=== PATIENT | male | born 1965 | race African-American/Black ===

== ENCOUNTER 2021-06-22 14:10 | Emergency (ER) | payer BC, OTHER ==
[2021-06-22 14:31] VITALS: BMI 29.2
[2021-06-22] MEDS ORDERED: BAMLANIVIMAB 700 MG, ETESEVIMAB 1,400 MG in SODIUM CHLORIDE 100 ML IVPB ONE (14:41)
[2021-06-22] MEDS ORDERED: SODIUM CHLORIDE 1,000 ML IV STA (14:41)
[2021-06-22] MEDS ORDERED: ACETAMINOPHEN 1000 MG/100 ML VIAL IVPB ONE (14:41)
[2021-06-22] MEDS ORDERED: ACETAMINOPHEN INJECTION 100 ML IVPB ONE (15:47)
[2021-06-22 18:00] VITALS: BP 118/60; PULSE 86; TEMP 99.3
== END 2021-06-22 18:02 | disposition home or self-care (01) ==
LOC: JCOVINFU 14:10 → JER 14:10 → JCOVINFU 18:02
PROC: 3E0333Z Introduction of Anti-inflammatory into Peripheral Vein, Percutaneous Approach (ICD-10-PCS; principal; 2021-06-22)
PROC: 3E03329 Introduction of Other Anti-infective into Peripheral Vein, Percutaneous Approach (ICD-10-PCS; 2021-06-22)
PROC: 3E0337Z Introduction of Electrolytic and Water Balance Substance into Peripheral Vein, Percutaneous Approach (ICD-10-PCS; 2021-06-22)
DX: U07.1 COVID-19 (principal)
CPT/HCPCS: 99284-25; J0131; Q0245

== ENCOUNTER 2021-06-26 21:19 | Inpatient (IN) | payer BC ==
[2021-06-26] MEDS ORDERED: DEXAMETHASONE SOD PHOSPHATE 10 MG/1 ML VIAL IVPUSH ONE (21:59)
[2021-06-26] MEDS ORDERED: DEXAMETHASONE SOD PHOSPHATE 10 MG/1 ML VIAL ONE (22:18)
[2021-06-26] MEDS ORDERED: ACETAMINOPHEN 1000 MG/100 ML BAG IVPB ONE (23:15)
[2021-06-26 23:41] LABS: VENOUS O2 SATURATION 49.9 % (70-80); VENOUS PCO2 47.7 mmHg (38-52); VENOUS PH 7.384 (7.310-7.410)
[2021-06-26 23:45] LABS: BASO % 0.3 % (0-2.0); EOS % 0.1 % (0-4.5); HEMATOCRIT 42.3 % (35.4-49); HEMOGLOBIN 14.2 GM/dL (11.7-16.9); LYMPH % 12.1 % (8-40); MCH 29.7 pg (25.7-33.7); MCHC 33.5 g/dl (32.0-35.9); MEAN CELL VOLUME 88.7 fl (80-96); MEAN PLT VOLUME 9.7 fl (7.5-11.1); MONO % 4.9 % (3.8-10.2); NEUT % 82.6 % (42.8-82.8); PLATELET COUNT 242 10^3/uL (134-434); RBC 4.77 M/mm3 (4.00-5.60); WHITE BLOOD COUNT 6.3 K/mm3 (4.0-10.0)
[2021-06-26 23:51] LABS: INR 1.44 (0.83-1.09); PROTHROMBIN TIME (PATIENT) 16.2 SEC (9.7-13.0)
[2021-06-26 23:54] LABS: ACTIVATED PTT 25.3 SECONDS (25.2-36.5)
[2021-06-27 00:01] LABS: CHLORIDE 96 mmol/L (98-107); SODIUM 133 mmol/L (136-145)
[2021-06-27 00:04] LABS: BLOOD UREA NITROGEN 10.9 mg/dL (7-18)
[2021-06-27 00:05] LABS: ALBUMIN 2.6 g/dl (3.4-5.0); ANION GAP 9 MMOL/L (8-16); CO2 28 mmol/L (21-32); GLUCOSE,RANDOM 123 mg/dL (74-106)
[2021-06-27 00:07] LABS: BILIRUBIN,DIRECT 0.2 mg/dL (0.0-0.2); SGPT/ALT 34 U/L (13-61)
[2021-06-27 00:08] LABS: CREATININE 1.1 mg/dL (0.55-1.3); SGOT/AST 41 U/L (15-37)
[2021-06-27 00:09] LABS: LDH 422 U/L (87-246); TOT PROT 7.4 g/dl (6.4-8.2)
[2021-06-27 00:10] LABS: ALK PHOS 85 U/L (45-117)
[2021-06-27 00:59] LABS: BILIRUBIN,TOTAL 0.6 mg/dL (0.2-1); LACTIC ACID 2.4 mmol/L (0.4-2.0)
[2021-06-27] MEDS ORDERED: ACETAMINOPHEN INJECTION 100 ML IVPB ONE (01:12)
[2021-06-27] MEDS ORDERED: SODIUM CHLORIDE 0.9% 500 ML INFUS.BAG IV ONE (01:28)
[2021-06-27] MEDS ORDERED: ALBUTEROL SO4 HFA INHALER IH PRN (02:07)
[2021-06-27] MEDS ORDERED: AZITHROMYCIN IVPB 500 MG/250 ML BAG IVPB ONE ×2 (02:12→02:27)
[2021-06-27] MEDS ORDERED: ACETAMINOPHEN 325 MG TABLET (FP) ONE (02:28)
[2021-06-27 02:31] LABS: EPI CELLS 19 /uL (0-25.1); HYALINE CASTS 2 /uL (0-3.1); PH,URINE 7.5 (5.0-8.0); URINE APPEARANCE CLEAR; URINE BACTERIA 233 /uL (0-1359); URINE BILIRUBIN NEGATIVE (NEGATIVE); URINE COLOR DK YELLOW; URINE GLUCOSE (UA) NEGATIVE (NEGATIVE); URINE KETONE NEGATIVE (NEGATIVE); URINE LEUK ESTERASE NEGATIVE (NEGATIVE); URINE NITRITE NEGATIVE (NEGATIVE); URINE PROTEIN 1+ (NEGATIVE); URINE WBC 6 /uL (0-25.8)
[2021-06-27 04:27] LABS: URINE RBC 26.8 /uL (0-23.9); YEAST NONE SEEN (NEGATIVE)
[2021-06-27] MEDS ORDERED: ASCORBIC ACID 500 MG TABLET (FP) ONE (08:52)
[2021-06-27] MEDS ORDERED: ZINC SULFATE 220 MG CAPSULE (FP) ONE (08:53)
[2021-06-27] MEDS ORDERED: DEXAMETHASONE SOD PHOSPHATE 10 MG/1 ML VIAL ONE (08:53)
[2021-06-27] MEDS ORDERED: APIXABAN 5 MG TABLET ONE (08:53)
[2021-06-27] MEDS ORDERED: FAMOTIDINE 20 MG TABLET ONE (08:53)
[2021-06-27] MEDS: ZINC SULFATE 220 MG CAPSULE (FP) PO SCH (09:14)
[2021-06-27] MEDS: DEXAMETHASONE SOD PHOSPHATE 10 MG/1 ML VIAL IVPUSH SCH (09:14)
[2021-06-27] MEDS: ASCORBIC ACID 500 MG TABLET (FP) PO SCH ×2 (09:14→22:41)
[2021-06-27] MEDS: FAMOTIDINE 20 MG TABLET PO SCH (09:14)
[2021-06-27] MEDS: CHOLECALCIFEROL (VIT D3) 5000 UNITS (125 MCG) CAP PO SCH (09:15)
[2021-06-27 09:42] LABS: LACTIC ACID 2.1 mmol/L (0.4-2.0)
[2021-06-27 09:52] LABS: ALBUMIN 2.5 g/dl (3.4-5.0); BLOOD UREA NITROGEN 12.4 mg/dL (7-18); CALCIUM 8.1 mg/dL (8.5-10.1)
[2021-06-27 09:55] LABS: CREATININE 1.1 mg/dL (0.55-1.3)
[2021-06-27 09:57] LABS: BILIRUBIN,TOTAL 0.7 mg/dL (0.2-1); TOT PROT 6.8 g/dl (6.4-8.2)
[2021-06-27] MEDS ORDERED: APIXABAN 5 MG TABLET PO SCH (10:00)
[2021-06-27 10:36] LABS: BASO % 0.3 % (0-2.0); HEMATOCRIT 38.1 % (35.4-49); HEMOGLOBIN 12.8 GM/dL (11.7-16.9); LYMPH % 11.2 % (8-40); MCH 29.7 pg (25.7-33.7); MCHC 33.7 g/dl (32.0-35.9); MEAN CELL VOLUME 88.3 fl (80-96); MEAN PLT VOLUME 9.2 fl (7.5-11.1); MONO % 4.7 % (3.8-10.2); NEUT % 83.8 % (42.8-82.8); PLATELET COUNT 210 10^3/uL (134-434); RBC 4.32 M/mm3 (4.00-5.60); RDW 13.2 % (11.9-15.9); WHITE BLOOD COUNT 4.6 K/mm3 (4.0-10.0)
[2021-06-27] MEDS ORDERED: PT OWN MED DRAWER 7, Y5N ONE (10:40)
[2021-06-27] MEDS ORDERED: REMDESIVIR 200 MG in SODIUM CHLORIDE 250 ML IVPB ONE (15:30)
[2021-06-28] MEDS: DEXAMETHASONE SOD PHOSPHATE 10 MG/1 ML VIAL IVPUSH SCH (09:49)
[2021-06-28] MEDS: ASCORBIC ACID 500 MG TABLET (FP) PO SCH ×2 (09:50→22:54)
[2021-06-28] MEDS: CHOLECALCIFEROL (VIT D3) 5000 UNITS (125 MCG) CAP PO SCH (09:50)
[2021-06-28] MEDS: FAMOTIDINE 20 MG TABLET PO SCH (09:50)
[2021-06-28] MEDS: ENOXAPARIN NA (PORCINE) 40 MG/0.4 ML DISP.SYRIN SQ SCH (09:50)
[2021-06-28] MEDS: ZINC SULFATE 220 MG CAPSULE (FP) PO SCH (09:50)
[2021-06-28] MEDS: REMDESIVIR 100 MG in SODIUM CHLORIDE 250 ML IVPB SCH (17:00)
[2021-06-29 07:25] LABS: BASO % 0.9 % (0-2.0); EOS % 0.1 % (0-4.5); HEMATOCRIT 38.3 % (35.4-49); HEMOGLOBIN 12.9 GM/dL (11.7-16.9); LYMPH % 13.6 % (8-40); MCH 29.4 pg (25.7-33.7); MCHC 33.7 g/dl (32.0-35.9); MEAN CELL VOLUME 87.3 fl (80-96); MEAN PLT VOLUME 8.5 fl (7.5-11.1); MONO % 4.3 % (3.8-10.2); NEUT % 81.1 % (42.8-82.8); PLATELET COUNT 271 10^3/uL (134-434); RBC 4.39 M/mm3 (4.00-5.60); RDW 12.8 % (11.9-15.9); WHITE BLOOD COUNT 10.1 K/mm3 (4.0-10.0)
[2021-06-29 08:01] LABS: ALBUMIN 2.4 g/dl (3.4-5.0); BLOOD UREA NITROGEN 13.9 mg/dL (7-18); CALCIUM 8.2 mg/dL (8.5-10.1)
[2021-06-29 08:04] LABS: CREATININE 0.9 mg/dL (0.55-1.3)
[2021-06-29 08:05] LABS: BILIRUBIN,TOTAL 0.6 mg/dL (0.2-1); TOT PROT 6.4 g/dl (6.4-8.2)
[2021-06-29] MEDS: ZINC SULFATE 220 MG CAPSULE (FP) PO SCH (11:27)
[2021-06-29] MEDS: DEXAMETHASONE SOD PHOSPHATE 10 MG/1 ML VIAL IVPUSH SCH (11:27)
[2021-06-29] MEDS: ASCORBIC ACID 500 MG TABLET (FP) PO SCH ×2 (11:27→22:44)
[2021-06-29] MEDS: FAMOTIDINE 20 MG TABLET PO SCH (11:27)
[2021-06-29] MEDS: ENOXAPARIN NA (PORCINE) 40 MG/0.4 ML DISP.SYRIN SQ SCH (11:27)
[2021-06-29] MEDS: CHOLECALCIFEROL (VIT D3) 5000 UNITS (125 MCG) CAP PO SCH (11:28)
[2021-06-29] MEDS ORDERED: TOCILIZUMAB (ACTEMRA) 200 MG/10 ML VIAL IVPB ONE (14:45)
[2021-06-29] MEDS: REMDESIVIR 100 MG in SODIUM CHLORIDE 250 ML IVPB SCH (15:48)
[2021-06-29] MEDS ORDERED: TOCILIZUMAB 700 MG in SODIUM CHLORIDE 65 ML IVPB ONE (16:00)
[2021-06-30 08:19] LABS: CALCIUM 8.2 mg/dL (8.5-10.1)
[2021-06-30 08:20] LABS: ALBUMIN 2.2 g/dl (3.4-5.0); BLOOD UREA NITROGEN 13.1 mg/dL (7-18); MAGNESIUM 2.5 mg/dL (1.8-2.4)
[2021-06-30 08:21] LABS: CREATININE 0.8 mg/dL (0.55-1.3)
[2021-06-30 08:22] LABS: BILIRUBIN,TOTAL 0.5 mg/dL (0.2-1)
[2021-06-30 08:24] LABS: TOT PROT 6.4 g/dl (6.4-8.2)
[2021-06-30 08:25] LABS: BASO % 0.3 % (0-2.0); HEMATOCRIT 38.3 % (35.4-49); HEMOGLOBIN 12.8 GM/dL (11.7-16.9); LYMPH % 10.6 % (8-40); MCH 29.2 pg (25.7-33.7); MCHC 33.5 g/dl (32.0-35.9); MEAN CELL VOLUME 87.2 fl (80-96); MEAN PLT VOLUME 8.5 fl (7.5-11.1); MONO % 5.3 % (3.8-10.2); NEUT % 83.8 % (42.8-82.8); PLATELET COUNT 298 10^3/uL (134-434); RBC 4.39 M/mm3 (4.00-5.60); RDW 13.1 % (11.9-15.9); WHITE BLOOD COUNT 9.2 K/mm3 (4.0-10.0)
[2021-06-30] MEDS: ENOXAPARIN NA (PORCINE) 40 MG/0.4 ML DISP.SYRIN SQ SCH (10:07)
[2021-06-30] MEDS: DEXAMETHASONE SOD PHOSPHATE 10 MG/1 ML VIAL IVPUSH SCH (10:07)
[2021-06-30] MEDS: FAMOTIDINE 20 MG TABLET PO SCH (10:08)
[2021-06-30] MEDS: ZINC SULFATE 220 MG CAPSULE (FP) PO SCH (10:08)
[2021-06-30] MEDS: ASCORBIC ACID 500 MG TABLET (FP) PO SCH ×2 (10:08→22:22)
[2021-06-30] MEDS: CHOLECALCIFEROL (VIT D3) 5000 UNITS (125 MCG) CAP PO SCH (12:53)
[2021-06-30] MEDS: REMDESIVIR 100 MG in SODIUM CHLORIDE 250 ML IVPB SCH (15:26)
[2021-07-01 08:39] LABS: BASO % 0.5 % (0-2.0); EOS % 0.1 % (0-4.5); HEMATOCRIT 39.5 % (35.4-49); HEMOGLOBIN 12.9 GM/dL (11.7-16.9); MCH 28.8 pg (25.7-33.7); MCHC 32.8 g/dl (32.0-35.9); MEAN PLT VOLUME 8.8 fl (7.5-11.1); MONO % 4.2 % (3.8-10.2); NEUT % 89.2 % (42.8-82.8); PLATELET COUNT 411 10^3/uL (134-434); RBC 4.49 M/mm3 (4.00-5.60); RDW 12.8 % (11.9-15.9); WHITE BLOOD COUNT 13.8 K/mm3 (4.0-10.0)
[2021-07-01 08:59] LABS: ALBUMIN 2.3 g/dl (3.4-5.0); BLOOD UREA NITROGEN 14.8 mg/dL (7-18); CALCIUM 8.6 mg/dL (8.5-10.1)
[2021-07-01 09:02] LABS: CREATININE 0.9 mg/dL (0.55-1.3)
[2021-07-01 09:03] LABS: BILIRUBIN,TOTAL 1.1 mg/dL (0.2-1); TOT PROT 6.5 g/dl (6.4-8.2)
[2021-07-01] MEDS: ENOXAPARIN NA (PORCINE) 40 MG/0.4 ML DISP.SYRIN SQ SCH (11:03)
[2021-07-01] MEDS: ZINC SULFATE 220 MG CAPSULE (FP) PO SCH (11:04)
[2021-07-01] MEDS: DEXAMETHASONE SOD PHOSPHATE 10 MG/1 ML VIAL IVPUSH SCH (11:04)
[2021-07-01] MEDS: FAMOTIDINE 20 MG TABLET PO SCH (11:04)
[2021-07-01] MEDS: ASCORBIC ACID 500 MG TABLET (FP) PO SCH ×3 (11:04→21:08)
[2021-07-01] MEDS: CHOLECALCIFEROL (VIT D3) 5000 UNITS (125 MCG) CAP PO SCH (11:05)
[2021-07-01] MEDS: REMDESIVIR 100 MG in SODIUM CHLORIDE 250 ML IVPB SCH (16:16)
[2021-07-02 07:01] LABS: HEMATOCRIT 38.6 % (35.4-49); HEMOGLOBIN 12.8 GM/dL (11.7-16.9); MCH 29.2 pg (25.7-33.7); MCHC 33.2 g/dl (32.0-35.9); MEAN PLT VOLUME 8.2 fl (7.5-11.1); PLATELET COUNT 445 10^3/uL (134-434); RBC 4.39 M/mm3 (4.00-5.60); RDW 12.9 % (11.9-15.9); WHITE BLOOD COUNT 13.3 K/mm3 (4.0-10.0)
[2021-07-02 07:24] LABS: ALBUMIN 2.4 g/dl (3.4-5.0); CALCIUM 8.5 mg/dL (8.5-10.1)
[2021-07-02 07:25] LABS: BLOOD UREA NITROGEN 13.1 mg/dL (7-18); CREATININE 0.8 mg/dL (0.55-1.3)
[2021-07-02 07:27] LABS: BILIRUBIN,TOTAL 0.5 mg/dL (0.2-1); TOT PROT 6.4 g/dl (6.4-8.2)
[2021-07-02] MEDS ORDERED: PT OWN MED DRAWER 7, Y5N ONE (07:50)
[2021-07-02 09:01] LABS: ANISOCYTOSIS 1+; MACROCYTOSIS 0; PLATELET ESTIMATE NORMAL
[2021-07-02] MEDS: ENOXAPARIN NA (PORCINE) 40 MG/0.4 ML DISP.SYRIN SQ SCH (09:20)
[2021-07-02] MEDS: ASCORBIC ACID 500 MG TABLET (FP) PO SCH ×2 (09:21→21:03)
[2021-07-02] MEDS: ZINC SULFATE 220 MG CAPSULE (FP) PO SCH (09:21)
[2021-07-02] MEDS: FAMOTIDINE 20 MG TABLET PO SCH (09:21)
[2021-07-02] MEDS: DEXAMETHASONE SOD PHOSPHATE 10 MG/1 ML VIAL IVPUSH SCH (09:21)
[2021-07-02] MEDS: CHOLECALCIFEROL (VIT D3) 5000 UNITS (125 MCG) CAP PO SCH (09:27)
[2021-07-02] MEDS: REMDESIVIR 100 MG in SODIUM CHLORIDE 250 ML IVPB SCH (15:34)
[2021-07-02] MEDS ORDERED: PANTOPRAZOLE 40 MG TABLET PO ONE (23:30)
[2021-07-03] MEDS: DEXAMETHASONE SOD PHOSPHATE 10 MG/1 ML VIAL IVPUSH SCH (11:47)
[2021-07-03] MEDS: ENOXAPARIN NA (PORCINE) 40 MG/0.4 ML DISP.SYRIN SQ SCH ×2 (11:47→21:11)
[2021-07-03] MEDS: FAMOTIDINE 20 MG TABLET PO SCH (11:48)
[2021-07-03] MEDS: ASCORBIC ACID 500 MG TABLET (FP) PO SCH ×2 (11:48→21:11)
[2021-07-03] MEDS: ZINC SULFATE 220 MG CAPSULE (FP) PO SCH (11:48)
[2021-07-03] MEDS: CHOLECALCIFEROL (VIT D3) 5000 UNITS (125 MCG) CAP PO SCH (11:48)
[2021-07-03] MEDS ORDERED: PT OWN MED DRAWER 7, Y5N ONE (15:20)
[2021-07-03] MEDS: REMDESIVIR 100 MG in SODIUM CHLORIDE 250 ML IVPB SCH (15:31)
[2021-07-03] MEDS: PANTOPRAZOLE 40 MG TABLET PO SCH (16:48)
[2021-07-03] MEDS ORDERED: MAG HYDROX/AL HYDROX/SIMETH -MYLANTA- ORAL SUSPENSION PO SCH (18:00)
[2021-07-03] MEDS: MAG HYDROX/AL HYDROX/SIMETH 30 ML UNIT-DOSE CUP PO SCH (23:31)
[2021-07-04] MEDS: MAG HYDROX/AL HYDROX/SIMETH 30 ML UNIT-DOSE CUP PO SCH ×3 (06:12→17:15)
[2021-07-04 07:10] LABS: EOS % 1.6 % (0-4.5); HEMATOCRIT 38.1 % (35.4-49); HEMOGLOBIN 12.7 GM/dL (11.7-16.9); LYMPH % 6.8 % (8-40); MCH 29.1 pg (25.7-33.7); MCHC 33.2 g/dl (32.0-35.9); MEAN CELL VOLUME 87.8 fl (80-96); MEAN PLT VOLUME 8.2 fl (7.5-11.1); MONO % 3.6 % (3.8-10.2); PLATELET COUNT 473 10^3/uL (134-434); RBC 4.34 M/mm3 (4.00-5.60); WHITE BLOOD COUNT 11.7 K/mm3 (4.0-10.0)
[2021-07-04 07:29] LABS: CALCIUM 8.5 mg/dL (8.5-10.1)
[2021-07-04 07:30] LABS: ALBUMIN 2.3 g/dl (3.4-5.0); BLOOD UREA NITROGEN 12.6 mg/dL (7-18)
[2021-07-04 07:34] LABS: TOT PROT 6.2 g/dl (6.4-8.2)
[2021-07-04 07:35] LABS: BILIRUBIN,TOTAL 0.4 mg/dL (0.2-1)
[2021-07-04] MEDS: DEXAMETHASONE SOD PHOSPHATE 10 MG/1 ML VIAL IVPUSH SCH (10:59)
[2021-07-04] MEDS: ASCORBIC ACID 500 MG TABLET (FP) PO SCH ×2 (10:59→22:19)
[2021-07-04] MEDS: ZINC SULFATE 220 MG CAPSULE (FP) PO SCH (10:59)
[2021-07-04] MEDS: ENOXAPARIN NA (PORCINE) 40 MG/0.4 ML DISP.SYRIN SQ SCH ×2 (11:00→22:19)
[2021-07-04] MEDS: FAMOTIDINE 20 MG TABLET PO SCH (11:00)
[2021-07-04] MEDS: CHOLECALCIFEROL (VIT D3) 5000 UNITS (125 MCG) CAP PO SCH (11:00)
[2021-07-04] MEDS: PANTOPRAZOLE 40 MG TABLET PO SCH (11:00)
[2021-07-04 15:00] VITALS: BMI 30.7
[2021-07-04] MEDS: ALBUTEROL SO4 HFA INHALER IH SCH ×2 (17:15→20:00)
[2021-07-04] MEDS: REMDESIVIR 100 MG in SODIUM CHLORIDE 250 ML IVPB SCH (17:16)
[2021-07-04] MEDS: BUDESONIDE/FORMETEROL FUMARATE 160/4.5 mcg INHALER IH SCH (22:25)
[2021-07-05] MEDS: MAG HYDROX/AL HYDROX/SIMETH 30 ML UNIT-DOSE CUP PO SCH ×4 (00:01→17:00)
[2021-07-05] MEDS: ACETAMINOPHEN 325 MG TABLET (FP) PO PRN ×2 (02:06→13:02)
[2021-07-05] MEDS: ALBUTEROL SO4 HFA INHALER IH SCH ×4 (09:47→20:00)
[2021-07-05] MEDS: CHOLECALCIFEROL (VIT D3) 5000 UNITS (125 MCG) CAP PO SCH (11:00)
[2021-07-05] MEDS: DEXAMETHASONE SOD PHOSPHATE 10 MG/1 ML VIAL IVPUSH SCH (11:00)
[2021-07-05] MEDS: PANTOPRAZOLE 40 MG TABLET PO SCH (11:00)
[2021-07-05] MEDS: ZINC SULFATE 220 MG CAPSULE (FP) PO SCH (11:00)
[2021-07-05] MEDS: ENOXAPARIN NA (PORCINE) 40 MG/0.4 ML DISP.SYRIN SQ SCH ×2 (11:00→21:26)
[2021-07-05] MEDS: FAMOTIDINE 20 MG TABLET PO SCH (11:00)
[2021-07-05] MEDS: BUDESONIDE/FORMETEROL FUMARATE 160/4.5 mcg INHALER IH SCH ×2 (11:01→21:27)
[2021-07-05] MEDS: ASCORBIC ACID 500 MG TABLET (FP) PO SCH ×2 (11:01→21:27)
[2021-07-05] MEDS ORDERED: PT OWN MED DRAWER 7, Y5N ONE (13:14)
[2021-07-05] MEDS: REMDESIVIR 100 MG in SODIUM CHLORIDE 250 ML IVPB SCH (17:00)
[2021-07-06] MEDS: MAG HYDROX/AL HYDROX/SIMETH 30 ML UNIT-DOSE CUP PO SCH ×4 (00:08→17:45)
[2021-07-06] MEDS: ALBUTEROL SO4 HFA INHALER IH SCH ×4 (08:36→20:00)
[2021-07-06] MEDS: CHOLECALCIFEROL (VIT D3) 5000 UNITS (125 MCG) CAP PO SCH (09:35)
[2021-07-06] MEDS: ENOXAPARIN NA (PORCINE) 40 MG/0.4 ML DISP.SYRIN SQ SCH ×2 (09:35→21:20)
[2021-07-06] MEDS: ASCORBIC ACID 500 MG TABLET (FP) PO SCH ×2 (09:36→21:20)
[2021-07-06] MEDS: FAMOTIDINE 20 MG TABLET PO SCH (09:36)
[2021-07-06] MEDS: BUDESONIDE/FORMETEROL FUMARATE 160/4.5 mcg INHALER IH SCH ×2 (09:36→21:21)
[2021-07-06] MEDS: ZINC SULFATE 220 MG CAPSULE (FP) PO SCH (09:36)
[2021-07-06] MEDS: PANTOPRAZOLE 40 MG TABLET PO SCH (09:36)
[2021-07-06] MEDS: DEXAMETHASONE SOD PHOSPHATE 10 MG/1 ML VIAL IVPUSH SCH (09:37)
[2021-07-07] MEDS: MAG HYDROX/AL HYDROX/SIMETH 30 ML UNIT-DOSE CUP PO SCH ×4 (02:44→18:24)
[2021-07-07] MEDS: ACETAMINOPHEN 325 MG TABLET (FP) PO PRN (04:49)
[2021-07-07] MEDS: ALBUTEROL SO4 HFA INHALER IH SCH ×4 (08:30→19:53)
[2021-07-07] MEDS ORDERED: PT OWN MED DRAWER 7, Y5N ONE (09:02)
[2021-07-07] MEDS: ENOXAPARIN NA (PORCINE) 40 MG/0.4 ML DISP.SYRIN SQ SCH ×2 (09:37→22:15)
[2021-07-07] MEDS: CHOLECALCIFEROL (VIT D3) 5000 UNITS (125 MCG) CAP PO SCH (09:37)
[2021-07-07] MEDS: DEXAMETHASONE SOD PHOSPHATE 10 MG/1 ML VIAL IVPUSH SCH (09:38)
[2021-07-07] MEDS: FAMOTIDINE 20 MG TABLET PO SCH (09:38)
[2021-07-07] MEDS: BUDESONIDE/FORMETEROL FUMARATE 160/4.5 mcg INHALER IH SCH ×2 (09:39→22:19)
[2021-07-07] MEDS: ASCORBIC ACID 500 MG TABLET (FP) PO SCH ×2 (09:39→22:19)
[2021-07-07] MEDS: ZINC SULFATE 220 MG CAPSULE (FP) PO SCH (09:39)
[2021-07-07] MEDS: PANTOPRAZOLE 40 MG TABLET PO SCH (09:39)
[2021-07-08] MEDS: MAG HYDROX/AL HYDROX/SIMETH 30 ML UNIT-DOSE CUP PO SCH ×4 (01:31→18:42)
[2021-07-08] MEDS: ZINC SULFATE 220 MG CAPSULE (FP) PO SCH (10:25)
[2021-07-08] MEDS: DEXAMETHASONE SOD PHOSPHATE 10 MG/1 ML VIAL IVPUSH SCH (10:25)
[2021-07-08] MEDS: ASCORBIC ACID 500 MG TABLET (FP) PO SCH ×2 (10:25→22:08)
[2021-07-08] MEDS: PANTOPRAZOLE 40 MG TABLET PO SCH (10:25)
[2021-07-08] MEDS: BUDESONIDE/FORMETEROL FUMARATE 160/4.5 mcg INHALER IH SCH ×2 (10:26→22:08)
[2021-07-08] MEDS: CHOLECALCIFEROL (VIT D3) 5000 UNITS (125 MCG) CAP PO SCH (10:26)
[2021-07-08] MEDS: ENOXAPARIN NA (PORCINE) 40 MG/0.4 ML DISP.SYRIN SQ SCH ×2 (10:26→22:08)
[2021-07-08] MEDS: ALBUTEROL SO4 HFA INHALER IH SCH ×4 (10:26→22:00)
[2021-07-08] MEDS: FAMOTIDINE 20 MG TABLET PO SCH (10:26)
[2021-07-09] MEDS: MAG HYDROX/AL HYDROX/SIMETH 30 ML UNIT-DOSE CUP PO SCH ×4 (00:05→17:14)
[2021-07-09] MEDS: ALBUTEROL SO4 HFA INHALER IH SCH ×3 (09:11→16:26)
[2021-07-09] MEDS ORDERED: PT OWN MED DRAWER 7, Y5N ONE (10:36)
[2021-07-09] MEDS: PANTOPRAZOLE 40 MG TABLET PO SCH (11:04)
[2021-07-09] MEDS: ZINC SULFATE 220 MG CAPSULE (FP) PO SCH (11:04)
[2021-07-09] MEDS: BUDESONIDE/FORMETEROL FUMARATE 160/4.5 mcg INHALER IH SCH (11:04)
[2021-07-09] MEDS: FAMOTIDINE 20 MG TABLET PO SCH (11:04)
[2021-07-09] MEDS: ASCORBIC ACID 500 MG TABLET (FP) PO SCH (11:04)
[2021-07-09] MEDS: ENOXAPARIN NA (PORCINE) 40 MG/0.4 ML DISP.SYRIN SQ SCH (11:04)
[2021-07-09] MEDS: CHOLECALCIFEROL (VIT D3) 5000 UNITS (125 MCG) CAP PO SCH (11:04)
[2021-07-09] MEDS: DEXAMETHASONE SOD PHOSPHATE 10 MG/1 ML VIAL IVPUSH SCH (11:09)
[2021-07-09 20:06] VITALS: BP 133/87; PULSE 94; TEMP 98.2
== END 2021-07-09 21:38 | disposition home or self-care (01) | DRG 177 ==
LOC: JER 21:19 → JERBED 06-27 00:18 → J4W 06-27 10:01
PROVIDERS: ADMIT Internal Medicine; ATTEND Internal Medicine
PROC: XW033E5 Introduction of Remdesivir Anti-infective into Peripheral Vein, Percutaneous Approach, New Technology Group 5 (ICD-10-PCS; principal; 2021-06-27)
PROC: 3E0333Z Introduction of Anti-inflammatory into Peripheral Vein, Percutaneous Approach (ICD-10-PCS; 2021-06-27)
PROC: XW033H5 Introduction of Tocilizumab into Peripheral Vein, Percutaneous Approach, New Technology Group 5 (ICD-10-PCS; 2021-06-29)
DX: U07.1 COVID-19 (principal); J12.82 Pneumonia due to coronavirus disease 2019; J96.01 Acute respiratory failure with hypoxia; K21.9 Gastro-esophageal reflux disease without esophagitis
CPT/HCPCS: 36415; 71045-TC-FY; 80053; 81003; 82248; 82550; 82553; 82728; 82803; 82962; 83605; 83615; 83735; 84100; 84484; 85025; 85379; 85610; 85730; 86140; 86480; 86803; 87040; 87086; 87340; 87517; 87804; 93005; 93010; 94761; 99285-25; C9399; C9803; J0131; J1100; J3262; U0003; U0005